=== PATIENT | female | born 1940 | race Caucasian/White ===

== ENCOUNTER 2017-07-16 07:13 | Day surgery (SDC) | payer MEDICARE, OTHER ==
[~2017-07-16] VITALS: Ht 152.4 cm; Wt 66.7 kg
[2017-07-16] MEDS ORDERED: ASPIRIN325 MG PO (08:26)
[2017-07-16] MEDS ORDERED: CELEXA20 MG PO (08:26)
[2017-07-16] MEDS ORDERED: CALCIUM 600+D T1 TA1 PO (08:27)
[2017-07-16] MEDS ORDERED: FERROUS SULFAT325 MG PO (08:28)
[2017-07-16] MEDS ORDERED: COREG12.5 MG PO (08:28)
[2017-07-16] MEDS ORDERED: LIPITOR40 MG PO (08:29)
[2017-07-16] MEDS ORDERED: HYDRALAZINE HCL25 MG PO (08:29)
[2017-07-16] MEDS ORDERED: KLOR-CON 1010 MEQ PO (08:29)
[2017-07-16] MEDS ORDERED: NORVASC5 MG PO (08:30)
[2017-07-16] MEDS ORDERED: MIRALAX17 GM PO (08:30)
[2017-07-16] MEDS ORDERED: PLAVIX75 MG PO (08:31)
[2017-07-16] MEDS ORDERED: PRILOSEC10 M1 PO (08:31)
[2017-07-16] MEDS ORDERED: RENAGEL800 MG PO (08:32)
[2017-07-16] MEDS ORDERED: NIFEDIPINE ER30 MG PO (08:32)
[2017-07-16] MEDS ORDERED: LASIX80 MG PO (08:35)
[2017-07-16 08:45] VITALS: Ht 152.4 cm; Wt 66.7 kg
[2017-07-16 08:52] LABS: APTT 28.5 SECONDS (22.8-39.4); INR 1.05 (0.85-1.17); PROTIME 13.3 SECONDS (11.6-15.0)
[2017-07-16 08:56] LABS: ANION GAP 15.3 mmol/L (8-16); CALCIUM 9.3 mg/dL (8.5-10.1); CREATININE - SERUM 2.5 mg/dL (0.6-1.3); POTASSIUM - SERUM 4.3 mmol/L (3.5-5.1)
[2017-07-16 09:12] LABS: BASOPHILS 0.8 % (0-2); EOSINOPHILS 2.5 % (0-7); IMMATURE GRANULOCYTES 0.2 % (0-5); LYMPHOCYTES 27.8 % (15-50); MCH 40.1 pg (26.0-34.0); MCHC 39.9 g/dL (31.0-37.0); MCV 100.6 fL (80.0-100.0); MEAN PLATELET VOLUME 10.7 fL (7.4-10.4); MONOCYTES 12.3 % (2-11); NEUTROPHILS 56.4 % (40-80); PLATELET COUNT 129 10x3/uL (130-400); RDW 18.2 % (11.5-14.5); WBC 9.8 10x3/uL (4.8-10.8)
--- NOTE | 2017-07-16 09:13 | NUR ---
[address] BARNES
[2017-07-16 09:19] LABS: HEMATOCRIT 43.2 % (36.0-48.0); HEMOGLOBIN 13.9 g/dL (12-16); RBC 4.22 10x6/uL (4.00-5.40)
--- NOTE | 2017-07-20 15:06 | OP ---
PATIENT NAME: LORNA SCHNEIDER I MEDICAL RECORD: [id number] :38 LOCATION:[facility] ADMISSION DATE: SURGEON: LULÚ CHOE MD DATE OF OPERATION: 07/16/2017 REFERRING PHYSICIAN: Lukas Cortes MD PREOPERATIVE DIAGNOSES: End-stage renal disease, dependence on hemodialysis; and diabetes mellitus. POSTOPERATIVE DIAGNOSES: End-stage renal disease, dependence on hemodialysis; and diabetes mellitus. SURGEON: Lulú Choe MD OPERATION PERFORMED: Creation of a Yo-type left brachial artery to cephalic vein arteriovenous fistula. ANESTHESIA: General with LMA per [employer] PREOPERATIVE NOTE: Ms. Poe is a rather frail 76-year-old white female from [place], referred to me by Dr. Cortes for dialysis access. I have seen her in the office back in May and wanted, if possible, to delay her surgery until after her management developer will allow her to discontinue Plavix; however, she is still on Plavix and brought to the operating room today. She is stable as far as we know from cardiac standpoint. I plan to provide access in her left arm with either a fistula or probably more likely a graft. She is rather marginal or borderline as far as tissue turgor and tissue quality, age, etc. for graft versus fistula. Under anesthesia, in supine position, she was prepped and draped in a sterile manner. Under anesthesia and after application of a venous tourniquet in the form of a Beulah drain, the median cubital vein stood out quite nicely and was fairly large. I examined her with ultrasound after applying topical nitroglycerin and noted the cephalic vein in the upper arm to be quite suitable for use for a primary fistula. The brachial artery appeared normal with good caliber and did not show signs of atherosclerosis. I elected at this time to go ahead and take a chance on creating a primary fistula. I made a transverse antecubital incision and mobilized the median cubital vein and treated it with topical papaverine. Distally, it was ligated and then divided and beveled. The ligation was done with 3-0 Vicryl. The adventitia was gently stripped from the vein. It was again treated with topical papaverine and it was flushed and distended with hydrostatic pressure using heparinized saline. It was then occluded with an atraumatic vascular clamp. The brachial artery was then exposed, mobilized, and controlled with Silastic loops. The artery was opened and flushed proximally and distally with heparinized saline. An end-to-side anastomosis end to vein to side of artery was then performed under no tension with continuous running 7-0 Prolene. The suture line was treated with Evicel sealant and 2 minutes elapsed before flow was restored in the brachial artery and clamps removed from the fistula. There was bleeding however at the proximal end of the anastomosis, which required again occluding the vessels and a [id number] suture of 7-0 Prolene was applied to the gap in the anastomosis that leaked. After that, the suture line was hemostatic and excellent pulsatile Doppler flow was demonstrated within the fistula with handheld Doppler and good pulsatile flow in the distal brachial artery and in the radial and ulnar OPERATIVE REPORT [id number] LORNA SCHNEIDER I arteries at the wrist with the graft opened as well as closed. The wound was irrigated with Ancef and gentamicin solution, was infiltrated and irrigated with 0.25% Marcaine without epinephrine. The wound was closed with interrupted inverted 3-0 Vicryl and then running intracuticular 4-0 Monocryl and Dermabond glue. It was dressed with Maxorb Ag, Tegaderm, and Cavilon skin prep. The patient was then awakened and was taken to the recovery room in stable condition with a functioning fistula. I will allow her to go home today. She will be advised to take Tylenol for pain, and if necessary, use ice off and on to the site. I will plan to see her back in my office next week to remove her dressing at that time. Hopefully, the fistula can mature and be ready for dialysis access in 6-8 weeks. If there are any real problems prolonging its maturation, then it still might be better to convert to a prosthetic graft. We will have to wait and see. There was no blood loss during the procedure. All sponges, instruments, and needles were accounted for. No drain was used and no surgical specimen was submitted for histopathology. TRANSINT:[id number] Voice Confirmation ID: [id number] DOCUMENT ID: [id number] LULÚ CHOE MD at 1506 CC: LUKAS CORTES MD [id number] DICTATION DATE: 07/16/17 1148 LEAD MECHANIC: 07/16/17 1227 [facility] 07/16/17 [facility] [address] [facility] [place] [address]
== END 2017-07-16 14:30 | disposition home or self-care (01) ==
LOC: D.OPS 07:13
PROVIDERS: Surgery
DX: E11.22 Type 2 diabetes mellitus with diabetic chronic kidney disease (principal); N18.6 End stage renal disease; Z79.02 Long term (current) use of antithrombotics/antiplatelets; Z01.812 Encounter for preprocedural laboratory examination

== ENCOUNTER 2017-09-20 06:29 | Day surgery (SDC) | payer MEDICARE, OTHER ==
[~2017-09-20] VITALS: Ht 152.4 cm; Wt 66.7 kg
--- NOTE | ~2017-09-20 | OP ---
PATIENT NAME: LORNA SCHNEIDER I MEDICAL RECORD: [id number] :38 LOCATION:[facility] ADMISSION DATE: SURGEON: LULÚ CHOE MD DATE OF OPERATION: 09/20/2017 PREOPERATIVE DIAGNOSES: End-stage renal disease and dependence on hemodialysis, diabetes mellitus, and thrombosed left brachiocephalic AV fistula. POSTOPERATIVE DIAGNOSES: End-stage renal disease and dependence on hemodialysis, diabetes mellitus, and thrombosed left brachiocephalic AV fistula. REFERRING PHYSICIAN: Jesse Rios MD OPERATION PERFORMED: Implantation of an AV graft in the left arm, Stafford configuration, brachial artery to axillary vein using 4-7 mm tapered Burton Propaten PTFE graft. SURGEON: Lulú Choe MD ANESTHESIA: General with LMA per [employer]. PREOPERATIVE NOTE: A 76-year-old white female patient, on hemodialysis, needs access, a brachiocephalic AV fistula has failed. DESCRIPTION OF PROCEDURE: With the patient in supine position and under anesthesia, she was prepped and draped in sterile manner. I examined her with duplex ultrasound and identified the location of the axillary vein and confirmed thrombosis of the brachiocephalic AV fistula, although the stump of the fistula was not fully thrombosed. An incision was made in the antecubital space and the prior arterial anastomosis exposed and the artery controlled proximally and distally with Silastic loops, proximal transverse axillary incision was made and the axillary vein exposed and controlled with Silastic loops. I then transected the cephalic vein about a centimeter out from the arterial anastomosis. I removed a little bit of remaining thrombus and then flushed the artery proximally and distally with heparinized saline after which I did an end-to-end anastomosis of the 4-mm tapered end of the PTFE graft to the end of the cephalic vein at that point with running 6-0 Prolene. I found the suture line to be hemostatic. The graft and anastomosis were flushed with heparinized saline and the graft clamped and the graft was then placed in a subcutaneous tunnel as superficial as possible arching laterally before coming back medially to the upper incision. It was shortened and beveled and the vein was occluded. A venotomy made and the vein flushed proximally with heparinized saline and the graft then anastomosed to the vein with running 6-0 Prolene. When that suture line was complete and the occluding clamps and loops were released, excellent flow was established immediately in the graft and there was no bleeding. The wounds were irrigated with Ancef and gentamicin solution. They were closed in layers without drain using interrupted 3-0 Vicryl and then running intracuticular 4-0 Monocryl, Dermabond glue, and Maxorb AG. Dressings of Tegaderm with Cavilon skin prep were applied and the patient awakened and taken to the recovery room. Blood loss was insignificant and unreplaced. All sponges, instruments, and needles were accounted for. No drain was used and no surgical specimen was submitted for histopathology. OPERATIVE REPORT [id number] LORNA SCHNEIDER I The patient will be discharged to return to the [facility] today and come back to see me in my office next week. TRANSINT:[id number] Voice Confirmation ID: [id number] DOCUMENT ID: [id number] LULÚ CHOE MD at 1058 CC: [id number] DICTATION DATE: 09/20/17 1344 SECURITY GUARD SUPERVISOR: 09/20/17 1411 [facility] 09/20/[address] [id number]
[~2017-09-20 06:29] MED LIST: ASPIRIN325 MG PO; CALCIUM 600+D T1 TA1 PO; CELEXA20 MG PO; COREG12.5 MG PO; FERROUS SULFAT325 MG PO; HYDRALAZINE HCL25 MG PO; KLOR-CON 1010 MEQ PO; LASIX80 MG PO; LIPITOR40 MG PO; MIRALAX17 GM PO; NIFEDIPINE ER30 MG PO; NORVASC5 MG PO; PLAVIX75 MG PO; PRILOSEC10 M1 PO; RENAGEL800 MG PO
[2017-09-20] MEDS ORDERED: GLUCOTROL ER2.5 MG PO (07:47)
[2017-09-20] MEDS ORDERED: LOTRISONE CREAM45 GM TOPICAL (07:49)
[2017-09-20 07:55] VITALS: Ht 152.4 cm; Wt 66.7 kg
[2017-09-20 07:55] LABS: ANION GAP 17.8 mmol/L (8-16); CALCIUM 9.7 mg/dL (8.5-10.1); CREATININE - SERUM 2.7 mg/dL (0.6-1.3); POTASSIUM - SERUM 4.8 mmol/L (3.5-5.1)
[2017-09-20 08:08] LABS: INR 0.97 (0.85-1.17); PROTIME 12.5 SECONDS (11.6-15.0)
[2017-09-20 09:07] LABS: HEMOGLOBIN 13.3 g/dL (12-16); MCH 31.1 pg (26.0-34.0); MCHC 32.8 g/dL (31.0-37.0); MCV 94.6 fL (80.0-100.0); RBC 4.28 10x6/uL (4.00-5.40); RDW 14.4 % (11.5-14.5); WBC 11.9 10x3/uL (4.8-10.8)
[2017-09-20 09:08] LABS: MEAN PLATELET VOLUME 11.6 fL (7.4-10.4)
[2017-09-20 09:11] LABS: EOSINOPHILS 3 % (0-7); LYMPHOCYTES 24 % (15-50); MONOCYTES 12 % (2-11); NEUTROPHILS 60 % (40-80)
[2017-09-20 09:12] LABS: ANISOCYTOSIS 1+; PLATELET ESTIMATE NORMAL; PLATELET MORPHOLOGY PLT CLUMPS PRESENT; ROULEAUX OCC
[2017-09-20 09:14] LABS: HEMATOCRIT 40.5 % (36.0-48.0); PLATELET COUNT 122 10x3/uL (130-400)
[2017-09-20] MEDS ORDERED: ULTRAM50 MG PO (13:37)
== END 2017-09-20 15:10 | disposition home or self-care (01) ==
LOC: D.OPS 06:29
PROVIDERS: Surgery
DX: E11.22 Type 2 diabetes mellitus with diabetic chronic kidney disease (principal); I12.0 Hypertensive chronic kidney disease with stage 5 chronic kidney disease or end stage renal disease; N18.6 End stage renal disease; Z99.2 Dependence on renal dialysis; I25.10 Atherosclerotic heart disease of native coronary artery without angina pectoris; K21.9 Gastro-esophageal reflux disease without esophagitis; Z95.5 Presence of coronary angioplasty implant and graft; Z01.812 Encounter for preprocedural laboratory examination